=== PATIENT | male | born 1940 | race Caucasian/White ===

== ENCOUNTER → 2017-03-17 14:45 | Emergency (ER) | payer MEDICARE, OTHER ==
[2017-03-17 15:03] VITALS: BP 144/99
== END | disposition left against medical advice (07) ==
LOC: ED 14:45
DX: R00.2 Palpitations (principal)
CPT/HCPCS: 93005

== ENCOUNTER 2017-03-18 12:26 | Emergency (ER) | payer MEDICARE ==
[2017-03-18 14:30] VITALS: BP 110/72
--- NOTE | 2017-03-19 07:58 | ED ---
Gareth Maloney Angela, scribed for Robbie Petersen MD on 03/18/17 at 1337 . Throat Pain/Nasal Congestion - HPI Summary HPI Summary: This pt is a 76 y/o male presenting to [facility] c/o bleeding from left ear today. He denies any trauma. Pt denies sticking anything in his ear. Pt notes his ear is not bleeding any longer. He denies ear pain. Pt went to his PCP who advised him to come to the ED. NKDA. - History of Current Complaint Chief Complaint: EDGeneral Time Seen by Provider: 03/18/17 13:35 Hx Obtained From: Patient Onset/Duration: Lasting Hours, Resolved Associated Signs And Symptoms: Positive: Negative Cough: None - Allergies/Home Medications Allergies/Adverse Reactions: Allergies Allergy/AdvReac Type Severity Reaction Status Date / Time No Known Allergies Allergy Verified 03/17/17 14:58 PMH/Surg Hx/FS Hx/Imm Hx Endocrine/Hematology History: Denies: Hx Diabetes Cardiovascular History: Reports: Hx Hypertension, Hx Myocardial Infarction, Other Cardiovascular Problems/Disorders - cardiac stent - Immunization History Date of Tetanus Vaccine: UTD Date of Influenza Vaccine: 12/2016 Infectious Disease History: No Infectious Disease History: Denies: Traveled Outside the [place] in Last 30 Days - Family History Known Family History: Positive: Other - FHx of colon CA - Social History Alcohol Use: Rare Substance Use Type: Reports: None Smoking Status (MU): Former Smoker Review of Systems Negative: Fever, Chills Eyes: Negative ENT: Other - bleeding from left ear Negative: Ear Ache Cardiovascular: Negative Respiratory: Negative Gastrointestinal: Negative Genitourinary: Negative Skin: Negative Neurological: Negative All Other Systems Reviewed And Are Negative: Yes Physical Exam - Summary Physical Exam Summary: VITAL SIGNS: Reviewed. GENERAL: Patient is a well-developed and nourished male who is lying comfortable in the stretcher. Patient is not in any acute respiratory distress. HEAD AND FACE: No signs of trauma. No ecchymosis, hematomas or skull depressions. No sinus tenderness. EYES: PERRLA, EOMI x 2, No injected conjunctiva, no nystagmus. EARS: Hearing grossly intact. Right ear canal and tympanic membrane are within normal limits. Left tympanic membrane is perforated. There is no active bleeding. MOUTH: Oropharynx within normal limits. NECK: Supple, trachea is midline, no adenopathy, no JVD, no carotid bruit, no c- spine tenderness, neck with full ROM. CHEST: Symmetric, no tenderness at palpation LUNGS: Clear to auscultation bilaterally. No wheezing or crackles. CVS: Regular rate and rhythm, S1 and S2 present, no murmurs or gallops appreciated. ABDOMEN: Soft, non-tender. No signs of distention. No rebound no guarding, and no masses palpated. Bowel sounds are normal. EXTREMITIES: FROM in all major joints, no edema, no cyanosis or clubbing. NEURO: Alert and oriented x 3. No acute neurological deficits. Speech is normal and follows commands. SKIN: Dry and warm Triage Information Reviewed: Yes Vital Signs On Initial Exam: Initial Vitals Temp Pulse Resp BP Pulse Ox 97.7 F 74 18 131/77 100 03/18/17 12:35 03/18/17 12:35 03/18/17 12:35 03/18/17 12:35 03/18/17 12:35 Vital Signs Reviewed: Yes - Piotr Coma Scale Coma Scale Total: 15 Diagnostics - Vital Signs Vital Signs Temp Pulse Resp BP Pulse Ox 03/18/17 12:35 97.7 F 74 18 131/77 100 - Laboratory Lab Statement: Any lab studies that have been ordered have been reviewed, and results considered in the medical decision making process. EENT Course/Dx - Course Assessment/Plan: This pt is a 76 y/o male presenting to [facility] c/o bleeding from left ear today. He denies any trauma. Pt denies sticking anything in his ear. Pt notes his ear is not bleeding any longer. He denies ear pain. Pt went to his PCP who advised him to come to the ED. NKDA. The pts symptom of bleeding from the left ear has resolved. I believe the bleeding is from the perforated left tympanic membrane. The pt was placed on antibiotics and was given a referral to follow up with ENT. The pt will be discharge home. Pt is hemodynamically stable, alert and oriented x3. - Diagnoses Provider Diagnoses: Perforated tympanic membrane Discharge - Discharge Plan Condition: Stable Disposition: HOME Prescriptions: Amoxicillin PO (*) [Amoxicillin 875 MG (*)] 875 mg PO BID #20 tab Patient Education Materials: Ruptured Eardrum (ED) Referrals: Caleb Vazquez MD [Medical Doctor] - 2 Days Andrew Diaz MD [Primary Care Provider] - Additional Instructions: Please follow up with Dr. Vazquez, ENT doctor. RETURN TO THE ED FOR ANY WORSENING OR NEW SYMPTOMS. The documentation as recorded by the Gareth cade Angela accurately reflects the service I personally performed and the decisions made by me, Robbie Petersen MD.
== END 2017-03-18 14:29 | disposition home or self-care (01) ==
LOC: ED 12:26
DX: H72.92 Unspecified perforation of tympanic membrane, left ear (principal); Z87.891 Personal history of nicotine dependence; I10 Essential (primary) hypertension; I25.2 Old myocardial infarction
CPT/HCPCS: 99282

== ENCOUNTER 2019-03-23 13:25 | Emergency (ER) | payer MEDICARE ==
--- OUTSIDE RECORDS SUMMARY | 2019-03-23 14:12 | XMS REPORT | Continuity of Care Document ---
:1940 External Reference #:[id number] Author Name Niurka Shipman O.D. Address [address] [place] [address] Care Team Providers Name Role Phone Andrew Diaz M.D. 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 Onset: 03/23/2019 Combined form of senile cataract Niurka Shipman O.D. Onset: 12/23/2017 Vitreous degeneration Niurka Shipman O.D. Onset: 11/29/2014 Nuclear senile cataract Niurka Shipman O.D. Onset: 11/29/2014 Social History Type Date Description Comments Sex Unknown ETOH Use Denies alcohol use Recreational Drug Use Denies Drug Use Tobacco Use Start: Unknown End: Patient is a former smoker quit aged 25 Unknown Smoking Status Reviewed: 03/23/19 Patient is a former smoker quit aged 25 Allergies, Adverse Reactions, Alerts Description No Known Drug Allergies Medications Active Medications SIG Qnty Indications Ordering Provider Date Artificial Tears as needed Niurka Shipman, 12/22/2017 0.2-0.2-1% O.D. Solution Aspirin Daily Unknown 81mg Chewtabs Ramipril 1 Daily Unknown 2.5mg Capsules Carvedilol 2 Daily Unknown 3.125mg Tablets Atorvastatin Calcium 1 Daily Unknown 40mg Tablets Vitamin B Complex Unknown Tablets Vitamin D Daily Unknown (Cholecalciferol) 1000Unit Tablets Immunizations Description No Information Available Vital Signs Description No Information Available Results Description No Information Available Procedures Date Code Description Status 12/25/2018 12151 Est Patient Comprehensive Exam Completed Medical Devices Description No Information Available Encounters Description No Information Available Assessments Date Code Description Provider 03/23/2019 G45.9 Transient cerebral ischemic attack, Niurka Shipman O.D. unspecified 03/23/2019 H25.813 Combined forms of age-related cataract, Niurka Shipman O.D. bilateral 03/23/2019 H43.813 Vitreous degeneration, bilateral Niurka Shipman O.D. 12/25/2018 H25.813 Combined forms of age-related cataract, Niurka Shipman O.D. bilateral 12/25/2018 H43.813 Vitreous degeneration, bilateral Niurka Shipman O.D. Plan of Treatment Future Appointment(s):12/27/2019 11:00 am - Niurka Shipman O.D. at Andrew Lopez MD, 03/23/2019 - Niurka Shipman O.D.G45.9 Transient cerebral ischemic attack, unspecifiedComments:I recommend that you go to the ER immediately for a stroke evaluation.Follow up:3 Month Follow Up At your next visit, we are not planning to dilate your eyes. However, if you have any changes in your vision or new symptoms, there are certain situations that require us to dilateyour eyes. If Dr. Shipman requests any additional testing, that may require extra time. If you haveany questions before your next appointment, please call our office at .H28.818 Combined forms of age-related cataract, bilateralComments:You have been diagnosed with cataracts. If you are happy with your vision as it is now, then we willsee you at your next scheduled appointment. If you feel like your vision is getting worse before your scheduled appointment, please call [facility] at [phone].h43.813 Vitreous degeneration, bilateralComments:You have a Posterior Vitreous Detachment. Please read the pamphlet that was given to you. If you have any changes in your floaters or flashing lights, please contact this office. Functional Status Description No Information Available Mental Status Description No Information Available Referrals Description No Information Available
--- OUTSIDE RECORDS SUMMARY | 2019-03-23 14:12 | XMS REPORT | Continuity of Care Document ---
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 Onset: 11/07/2009 Coronary arteriosclerosis Feliz Auguste M.D. Onset: 11/07/2009 Paronychia Andrew Diaz M.D. Onset: 04/30/2011 Eruption Andrew Diaz M.D. Onset: 11/12/2011 Enthesopathy Andrew Diaz M.D. Onset: 02/09/2012 Acute serous otitis media Andrew Diaz M.D. Onset: 06/28/2012 Achilles bursitis Andrew Diaz M.D. Onset: 02/23/2013 Thrombosed external hemorrhoids Andrew Diaz M.D. Onset: 02/04/2014 Temporomandibular joint disorder Andrew Diaz M.D. Onset: 07/30/2014 Knee pain Andrew Diaz M.D. Onset: 11/03/2015 Insect bite (nonvenomous), right foot, Andrew Diaz M.D. Onset: 2015 initial encounter Social History Type Date Description Comments Sex Unknown Tobacco Use Start: Unknown Nonsmoker Smoking Status Reviewed: 02/26/19 Nonsmoker Allergies, Adverse Reactions, Alerts Description No Known Drug Allergies Medications Active Medications SIG Qnty Indications Ordering Provider Date Altace 1 PO qd 0caps Family Medicine 03/31/2006 2.5mg Capsules [facility] Coreg 1 po bid 0tabs Family [facility] 03/31/2006 3.125mg Tablets [facility] Aspirin 1 po qd Unknown 81mg Tablets Atorvastatin Calcium 1 by mouth every Unknown 40mg day Tablets Vitamin B Complex 1 by mouth every Unknown day Tablets Vitamin D 1 by mouth every Unknown 1000Unit day otc Tablets Triamcinolone apply to Unknown Acetonide affected skin 0.1% Cream twice a day Immunizations CPT Code Status Date Vaccine Lot # [id number] Given 01/13/2018 High-Dose, Influenza Virus Vacccine-fluzone 65 and older 23367 Given 01/14/2017 High-Dose, Influenza Virus Vacccine-fluzone 65 and older 14039 Given 05/14/2016 Zostivax 39565 Given 01/24/2015 High-Dose, Influenza Virus Vacccine-fluzone 65 and older 50652 Given 12/03/2014 Pneumococcal Conjugate Vacc-13 [id number] 42026 Given 01/19/2013 DO Not Use Split Influenza Virus Vaccine 97972 Given 02/11/2012 DO Not Use Split Influenza Virus Vaccine 04134 Given 04/30/2011 Tetanus And Diptheria Adult Preservative Free [id number] >7Yrs Q2038 Given 02/13/2011 Split Influenza Medicare: Fluzone [id number] 92930 Given 02/18/2010 DO Not Use Split Influenza Virus Vaccine [id number] 48559 Given 09/02/1997 Td Immunization, For Use In Individuals 7 Years Or Older Vital Signs Date Vital Result Comment 02/26/2019 9:28am BP Systolic 118 mmHg BP Diastolic 60 mmHg Heart Rate 56 /min Body Temperature 98.6 F Respiratory Rate 16 /min Height 69 inches 5'9" Weight 143.50 lb BMI (Body Mass Index) 21.2 kg/m2 03/17/2017 1:29pm BP Systolic 122 mmHg BP Diastolic 70 mmHg Heart Rate 62 /min Body Temperature 97.9 F Height 69 inches 5'9" Weight 150.00 lb BMI (Body Mass Index) 22.1 kg/m2 Results Description No Information Available Procedures Date Code Description Status 06/14/2014 54192537 Colonoscopy Completed Medical Devices Description No Information Available Encounters Description No Information Available Assessments Date Code Description Provider 02/26/2019 K64.8 Other hemorrhoids Melanie Gonsalez Plan of Treatment 02/26/2019 - Aydin Gonsalez-CK64.8 Other hemorrhoidsAllComments: Medication Management Patient Understands medications he's taking? Yes No Are there Barriersto Adherence? Yes No Has the patient been asked about herbal supplements and therapies, and OTC meds? Yes No Care Plan1. Patient has been queried about patient's goals/preferences and functional/lifestyle goals at relevant visits. If relevant, describe: na2. Treatment goals asexplained to the patient: abovesx resolution 3. Are there barriers to meeting treatment goals? Yes No If Yes, please describe:4. Self-Management goals as described to the patient: Yes Norefer to surg associates for poss banding Functional Status Description No Information Available Mental Status Description No Information Available Referrals Refer to Reason for Referral Status Appt Date Alicia Benton Created [address] [place] [address] [phone]
--- OUTSIDE RECORDS SUMMARY | 2019-03-23 14:12 | XMS REPORT | Continuity of Care Document ---
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 Onset: 04/10/2015 Social History Type Date Description Comments Sex Unknown Tobacco Use Start: Unknown End: Former Cigarette Smoker Unknown Smoking Status Reviewed: 02/28/19 Former Cigarette Smoker ETOH Use Denies alcohol use Tobacco Use Start: Unknown End: Patient is a former Quit at age of 25. Unknown smoker Recreational Drug Use Denies Drug Use Exercise Type/Frequency Exercises regularly walking 2 miles daily Allergies, Adverse Reactions, Alerts Description No Known Drug Allergies Medications Active Medications SIG Qnty Indications Ordering Provider Date Atorvastatin Calcium 1 by mouth 90tabs Taran Garvey, 04/30/2016 40mg every day M.D. Tablets Coreg 1 by mouth 180tabs Taran Garvey, 3.125mg Tablets twice a day M.D. Ramipril 1 by mouth 90caps Taran Garvey, 2.5mg Capsules every day M.D. B Complex 1 po qd Unknown Capsules Aspirin 1 po qd Unknown 81mg Tablets Vitamin D3 1 by mouth Unknown 1000Unit every day Capsules Triamcinolone Acetonide apply to dry Unknown skin once or 0.1% Lotion twice daily Medications Administered in Office Medication SIG Qnty Indications Ordering Provider Date Technetium TC 99M Tetrofosmin, Taran Garvey M.D. 05/26/2018 Per Unit Dose Up To 40 Millicuries Injection Immunizations Description No Information Available Vital Signs Date Vital Result Comment 02/28/2019 10:13am Height 62.5 inches 5'2.50" Weight 138.00 lb Heart Rate 78 /min BP Systolic Sitting 126 mmHg BP Diastolic Sitting 78 mmHg Respiratory Rate 16 /min Body Temperature 98.4 F BMI (Body Mass Index) 24.8 kg/m2 05/31/2018 3:51pm Height 62.5 inches 5'2.50" Weight 144.00 lb with shoes Heart Rate 70 /min BP Systolic Sitting 114 mmHg Lue reg cuff BP Diastolic Sitting 72 mmHg Lue reg cuff BP Systolic Standing 118 mmHg Lue reg cuff BP Diastolic Standing 70 mmHg Lue reg cuff Respiratory Rate 16 /min BMI (Body Mass Index) 25.9 kg/m2 Ejection Fraction 55% date Results Description No Information Available Procedures Description No Information Available Medical Devices Description No Information Available Encounters Description No Information Available Assessments Description No Information Available Plan of Treatment 05/31/2018 - Taran Garvey M.D.I25.10 Atherosclerotic heart disease of [place] coronary artery withFollow up:1 year Functional Status Description No Information Available Mental Status Description No Information Available Referrals Description No Information Available
--- NOTE | 2019-03-23 16:59 | ED ---
Throat Pain/Nasal Congestion - HPI Summary HPI Summary: This pt is a 78 y/o male presenting [place] [facility] c/o one episode of visual disturbance 2 days ago. Pt reports he was watching TV 2 days ago when suddenly his vision went "crazy." He describes this episode as "similar to double vision , but things didn't make sense." Additionally describes it "like Su's paintings, [place]." Pt states that if he closed one eye at a time he could see ok, but if he had both eyes open he had this visual disturbance. He also notes pt felt faint and had to put his head down between his knees. Denies any LOC or syncope. Since then pt has not had any other episodes of visual disturbance. Denies any numbness, tingling, weakness, facial droop. Pt saw his ash collector today and had his eyes dilated. From report pt with present episode of diplopia and was diagnosed with TIA. PMHx: cataracts, HTN, high cholesterol, NM. Pt currently takes aspirin. - History of Current Complaint Chief Complaint: EDNeurologicalDeficit Time Seen by Provider: 03/23/19 16:53 Hx Obtained From: Patient Onset/Duration: Sudden Onset, Resolved Severity: Moderate Associated Signs And Symptoms: Positive: Negative Cough: None - Allergies/Home Medications Allergies/Adverse Reactions: Allergies Allergy/AdvReac Type Severity Reaction Status Date / Time No Known Allergies Allergy Verified 03/17/17 14:58 Home Medications: Home Medications Atorvastatin* [Lipitor*] 40 mg PO 1700 03/23/19 [History Confirmed 03/23/19] Ramipril CAP* [Altace CAP*] 2.5 mg PO DAILY 03/23/19 [History Confirmed 03/23/19 ] carvediloL [Carvedilol] 1 tab PO BID 03/23/19 [History Confirmed 03/23/19] PMH/Surg Hx/FS Hx/Imm Hx Endocrine/Hematology History: Denies: Hx Diabetes Cardiovascular History: Reports: Hx Hypercholesterolemia, Hx Hypertension, Hx Myocardial Infarction, Other Cardiovascular Problems/Disorders - cardiac stent Sensory History: Reports: Hx Cataracts - Immunization History Date of Tetanus Vaccine: UTD Date of Influenza Vaccine: 12/2016 Infectious Disease History: No Infectious Disease History: Denies: Traveled Outside the [place] in Last 30 Days - Family History Known Family History: Positive: Other - FHx of colon CA - Social History Alcohol Use: Rare Substance Use Type: Reports: Marijuana Smoking Status (MU): Former Smoker Review of Systems Negative: Fever Eyes: Other - POSITIVE: visual disturbance Positive: Diplopia Cardiovascular: Negative Respiratory: Negative Neurological: Other - POSITIVE: faint. NEGATIVE: facial droop Negative: Weakness, Paresthesia, Numbness All Other Systems Reviewed And Are Negative: Yes Physical Exam - Summary Physical Exam Summary: GENERAL: Patient is a well-developed and nourished male who is lying comfortable in the stretcher. Patient is not in any acute respiratory distress. HEAD AND FACE: No signs of trauma. No ecchymosis, hematomas or skull depressions. No sinus tenderness. EYES: PERRLA, EOMI x 2, No injected conjunctiva, no nystagmus. EARS: Hearing grossly intact. Ear canals and tympanic membranes are within normal limits. MOUTH: Oropharynx within normal limits. NECK: Supple, trachea is midline, no adenopathy, no JVD, no carotid bruit, no c- spine tenderness, neck with full ROM. CHEST: Symmetric, no tenderness at palpation LUNGS: Clear to auscultation bilaterally. No wheezing or crackles. CVS: Regular rate and rhythm, S1 and S2 present, no murmurs or gallops appreciated. ABDOMEN: Soft, non-tender. No signs of distention. No rebound no guarding, and no masses palpated. Bowel sounds are normal. EXTREMITIES: FROM in all major joints, no edema, no cyanosis or clubbing. NEURO: Alert and oriented x 3. No acute neurological deficits. Speech is normal and follows commands. SKIN: Dry and warm GCS: 15 Triage Information Reviewed: Yes Vital Signs On Initial Exam: Initial Vitals Temp Pulse Resp BP Pulse Ox 97.7 F 70 18 133/72 99 03/23/19 13:37 03/23/19 13:37 03/23/19 13:37 03/23/19 13:37 03/23/19 13:37 Vital Signs Reviewed: Yes Procedures - Sedation Patient Received Moderate/Deep Sedation with Procedure: No Diagnostics - Vital Signs Vital Signs Temp Pulse Resp BP Pulse Ox 03/23/19 13:37 97.7 F 70 18 133/72 99 - Laboratory Result Diagrams: 03/23/19 17:45 03/23/19 17:45 Lab Statement: Any lab studies that have been ordered have been reviewed, and results considered in the medical decision making process. - CT brain CT CT Interpretation Completed By: Radiologist Summary of CT Findings: IMPRESSION: 1. There is age-related diffuse cerebral and cerebellar volume loss and chronic microvascular ischemic disease. 2. No acute intracranial pathology. Dr. Petersen has reviewed this report. - EKG 1738 Cardiac Rate: NL - at 65 bpm EKG Rhythm: Sinus Rhythm EKG Comparison: No Significant Change - similar to prior EKG on 03/17/17. Summary of EKG Findings: EKG at 1738 shows normal sinus rhythm at a rate of [address] elevations. RBBB. Similar to prior EKG on 03/17/17. EENT Course/Dx - Course Assessment/Plan: This pt is a 78 y/o male presenting to [facility] c/o one episode of visual disturbance 2 days ago. Pt reports he was watching TV 2 days ago when suddenly his vision went "crazy." He describes this episode as "similar to double vision, but things didn't make sense." Additionally describes it "like [employer]s paintings, [place]." Pt states that if he closed one eye at a time he could see ok, but if he had both eyes open he had this visual disturbance. He also notes pt felt faint and had to put his head down between his knees. Denies any LOC or syncope. Since then pt has not had any other episodes of visual disturbance. Denies any numbness, tingling, weakness, facial droop. Pt saw his ash collector today and had his eyes dilated. From report pt with present episode of diplopia and was diagnosed with TIA. PMHx: cataracts, HTN, high cholesterol, NM. Pt currently takes aspirin. Blood work without any significant abnormality except for slight anemia, total protein 6.3. Head CT IMPRESSION: 1. There is age-related diffuse cerebral and cerebellar volume loss and chronic. microvascular ischemic disease. 2. No acute intracranial pathology. I discussed the case with and Dr. Atkinson from neurology and he recommends for the patient to be given aspirin 325 mg and Plavix 75 mg. He also recommends for the patient to be admitted to the hospitalist services for a TIA workup. He recommends an MRI of the brain, Doppler, and echocardiogram. I discuss my physical exam and test results with Dr. Boland from the hospitalist services and he agrees to admit the patient to his services. The patient is hemodynamically stable, alert and oriented x 3 - Diagnoses Provider Diagnoses: TIA (transient ischemic attack), Left against medical advice - Provider Notifications Discussed Care Of Patient With: Daniel Atkinson Time Discussed With Above Provider: 18:16 Instructed by Provider To: Other - Discussed the case with Dr. Atkinson, neurologist, who recommends admission for TIA work up, and recommends to give aspirin and Plavix. [18:34] Discussed with Dr. Boland, hospitalist, who accepted the pt for admission. Discharge ED - Sign-Out/Discharge Documenting (check all that apply): Patient Departure - Admit to [facility] - Discharge Plan Condition: Stable Disposition: AGAINST MEDICAL ADVICE Patient Education Materials: Transient Ischemic Attack (ED), Against Medical Advice (ED) Referrals: Andrew Diaz MD [Primary Care Provider] - 2 Days Additional Instructions: PLEASE FOLLOW UP WITH YOUR PRIMARY CARE PROVIDER FOR FURTHER CARE. RETURN TO THE EMERGENCY DEPARTMENT FOR ANY NEW OR WORSENING SYMPTOMS. - Billing Disposition and Condition Condition: STABLE Disposition: Admitted to [facility] - Attestation Statements Document Initiated by Chelseyibe: Yes Documenting Scribe: Laverne Servin Provider For Whom Chelseyibbob is Documenting (Include Credential): Robbie Petersen MD Scribe Attestation: Laverne Maloney scribed for Robbie Petersen MD on 03/25/19 at 1849. Scribe Documentation Reviewed: Yes Provider Attestation: The documentation as recorded by the Laverne cade accurately reflects the service I personally performed and the decisions made by , Robbie Petersen MD Status of Scribe Document: Viewed
[2019-03-23 18:03] LABS: ABS Eosinophils 0.2 10^3/ul (0-0.6); ABS Lymphocytes 1.7 10^3/ul (1.0-4.8); ABS Monocytes 0.6 10^3/ul (0-0.8); ABS Neutrophils 3.1 10^3/ul (1.5-7.7); Eosinophil % 2.8 %; Hematocrit 39 % (42-52); Hemoglobin 13.2 g/dL (14.0-18.0); Lymphocyte % 31.1 %; Mean Corpuscular HGB Conc 34 g/dL (31-36); Mean Corpuscular Hemoglobin 31 pg (27-31); Mean Corpuscular Volume 92 fL (80-94); Mean Platelet Volume 8.1 fL (7.4-10.4); Platelet Count 179 10^3/uL (150-450); Red Blood Count 4.23 10^6 /uL (4.18-5.48); Red Cell Distribution Width 15 % (10-15); White Blood Count 5.6 10^3/uL (3.5-10.8)
[2019-03-23 18:14] LABS: Albumin 3.7 g/dL (3.2-5.2); Albumin/Globulin Ratio 1.4 (1-3); BUN/Creatinine Ratio 21.9 (8-20); EGFR African American 126.4 (>60); EGFR Non-African American 104.5 (>60); Globulin 2.6 g/dL (2-4); HDL Cholesterol 68.5 mg/dL; Potassium 3.8 mmol/L (3.5-5.0); Total Bilirubin 0.7 mg/dL (0.2-1.0); Total Protein 6.3 g/dL (6.4-8.9)
[2019-03-23 18:14] LABS: Activated Partial Thrombo Time 37.2 seconds (26.0-38.0); INR 1.02 (0.82-1.09)
[2019-03-23] MEDS ORDERED: Clopidogrel TAB* 75 MG PO ONE (18:19)
[2019-03-23] MEDS ORDERED: Aspirin 81 mg CHEW TAB* 81 MG TAB.CHEW PO ONE (18:19)
[2019-03-23 19:10] LABS: Urine Appearance Cloudy; Urine Bilirubin Negative (Negative); Urine Blood Negative (Negative); Urine Color Yellow; Urine Glucose Negative (Negative); Urine Ketones Trace (Negative); Urine Nitrite Negative (Negative); Urine Protein Negative (Negative); Urine Specific Gravity 1.008 (1.010-1.030); Urine Urobilinogen Negative (Negative)
--- NOTE | 2019-03-23 19:32 | ED ---
Progress - Progress Note Progress Note: Pt was seen by the Hospitalist, LIZBETH Ames, and refused inpatient care. He stated that he will follow up in out patient care. He is leaving AMA and will be given the correct forms and informed of the possible complications from his choice, including but not limited to: Coma, , and paralysis. Course/Dx - Course Course Of Treatment: Pt was seen by the Hospitalist, LIZBETH Ames, and refused inpatient care. He stated that he will follow up in out patient care. He is leaving AMA and will be given the correct forms and informed of the possible complications from his choice, including but not limited to: Coma, , and paralysis. - Diagnoses Provider Diagnoses: TIA (transient ischemic attack), Left against medical advice - Provider Notifications Time Discussed With Above Provider: 18:16 Instructed by Provider To: Other - Discussed the case with Dr. Atkinson, neurologist, who recommends admission for TIA work up, and recommends to give aspirin and Plavix. [18:34] Discussed with Dr. Boland, hospitalist, who accepted the pt for admission. Discharge ED - Sign-Out/Discharge Documenting (check all that apply): Patient Departure - AMA - Discharge Plan Condition: Stable Disposition: AGAINST MEDICAL ADVICE Patient Education Materials: Transient Ischemic Attack (ED), Against Medical Advice (ED) Referrals: Andrew Diaz MD [Primary Care Provider] - 2 Days Additional Instructions: PLEASE FOLLOW UP WITH YOUR PRIMARY CARE PROVIDER FOR FURTHER CARE. RETURN TO THE EMERGENCY DEPARTMENT FOR ANY NEW OR WORSENING SYMPTOMS. - Billing Disposition and Condition Condition: STABLE Disposition: Against Medical Advice - Attestation Statements Document Initiated by Romelia: Yes Documenting Scribe: Everardo Ramirez Provider For Whom Romelia is Documenting (Include Credential): Anne Melvin MD Scribe Attestation: Everardo Maloney, scribed for Anne Melvin MD on 03/24/19 at 2014. Scribe Documentation Reviewed: Yes Provider Attestation: The documentation as recorded by the Everardo cade accurately reflects the service I personally performed and the decisions made by me, Anne Melvin MD Status of Scribe Document: Viewed
[2019-03-23 20:12] VITALS: BP 128/76
--- NOTE | 2019-03-23 22:51 | CONS ---
CC: Dr. Diaz MEDICINE CONSULTATION REPORT: DATE OF CONSULT: 03/23/19 PRIMARY CARE PHYSICIAN: Dr. Diaz. PROVIDER: Franco Carpenter NP ATTENDING PHYSICIAN: Isiah Boland MD (dictated by Franco Carpenter NP). REQUESTING PHYSICIAN: Robbie Petersen MD, Emergency Medicine. REASON FOR CONSULTATION: Evaluation for admission. HISTORY OF PRESENT ILLNESS: Mr. Myrick is a 78-year-old male who presented to the ER today at recommendation of the fashion intern. He reports on Tuesday he had an episode where he had visual disturbance, describing his vision was going "crazy." He reported that was like double vision, but thinks that it makes sense. It was more notable with both eyes, less notable with one eye closed. He also had some dizziness and lightheadedness and felt faint and had to put his head between his knees. Symptoms resolved on their own and he has since been fine. He saw Ophthalmology today and had his eyes dilated. The fashion intern expressed concern for TIA and referred him to the ER for further evaluation. He did have a CT of the brain, which showed no acute intracranial pathology. The case was discussed with Neurology, and he has recommended to be admitted to the hospital for further evaluation. Mr. Myrick declines to be admitted today as he states his insurance would not cover all hospitalizations and testing and will refer to get testing done as an outpatient. PAST MEDICAL HISTORY: Significant for hypertension, hypercholesterolemia, coronary artery disease with CT and history of stent placement and cataracts. HOME MEDICATIONS: Include: 1. Aspirin 81 mg daily. 2. Atorvastatin 40 mg daily 3. Ramipril 2.5 mg daily. 4. Carvedilol 3.125 mg twice a day. ALLERGIES: No known allergies. FAMILY HISTORY: Significant for colon cancer. SOCIAL HISTORY: He is a former smoker. He reports rare alcohol use. He does endorse marijuana use. He lists his son, Ryder Welch, as his surrogate decision maker in the event of emergency. REVIEW OF SYSTEMS: As per HPI, a 12-point review of systems was completed. PHYSICAL EXAM: Vital Signs: Temperature 98.8, heart rate 68, respiratory rate 16, blood pressure 110/60, O2 saturation 98% on room air. General: This is an older male seen lying in ED stretcher in no acute distress. HEENT: Head is atraumatic and normocephalic. Pupils are dilated, but symmetrical. Extraocular movements are intact. Oral mucosa is moist. Neck is supple. No lymphadenopathy appreciated. No JVD noted. No carotid bruit auscultated. Neck : Full range of motion. Cardiac: Regular rate and rhythm. Normal S1 and S2 heart sounds. Lungs: Clear to auscultation bilaterally. Abdomen: Soft, nontender, nondistended with normoactive bowel sounds. Extremities: Without edema, without clubbing or cyanosis. Full range of motion noted. Skin: Warm and dry. Neuro: He is alert and oriented x3. No focal deficits. Speech is clear. Cranial nerves II through XII grossly intact. DIAGNOSTIC STUDIES/LAB DATA: CBC: WBC 5.6, hemoglobin 13.2, hematocrit 39, platelet count 179. CMP: Sodium 139, potassium 3.8, chloride 107, carbon dioxide 27, BUN 16, creatinine 0.73, glucose 91, lactic acid 0.6, calcium 9.0. Total bilirubin 0.7, AST 29, ALT 28, alk phos 70, troponin 0. Triglycerides 50 , cholesterol 114, LDL 36, HDL 68. CT as per above. EKG shows normal sinus rhythm, no ischemic changes, right bundle- branch block which is similar to previous EKG seen in February 2017. Old medical records were reviewed. ASSESSMENT AND PLAN: This is a 78-year-old male seen today. We had offered to admit him in observation status for further testing and workup for his transient ischemic attack, which would include carotid Doppler studies, MRI, echo and monitoring on telemetry with neurological checks. I did discuss this at length with the patient for approximately 20 minutes, and we discussed the risks and benefits of staying here in the hospital to have full workup done versus leaving home and having this done as an outpatient. In any event, he was advised to continue on aspirin 325 and Plavix 75 as per recommendation of Dr. Atkinson were to decrease his risk for further neurological events. I did also convey this to the ER staff, as he will likely have to leave AMA from the ER as he is declining admission. We recommended to the ER to prescribe his aspirin and Plavix until he is able to see his PCP and follow up as this would help improve best outcome for the patient. In any event, I did let him know that if he change his mind we will be happy to admit him and do further evaluation here in the hospital, which would include the previous as mentioned tests. He was thankful for this, but opted to go home and follow up with Dr. Diaz as an outpatient. At this point in time, he will be under the care of emergency service team and should this change, we will be happy to resume care for him on the inpatient unit. TIME SPENT: Approximately 40 minutes was spent on this consult with greater than half the time spent [id number] with the patient, obtaining history and physical, performing the physical examination, and reviewing the plan of care. Plan of care was also discussed with my attending, Dr. Boland, who is in agreement. FRANCO CARPENTER, IRISH MOSS GATHERER [id number]/CPS #: [id number] R
== END 2019-03-23 20:10 | disposition left against medical advice (07) ==
LOC: ED 13:25
DX: G45.9 Transient cerebral ischemic attack, unspecified (principal); Z53.21 Procedure and treatment not carried out due to patient leaving prior to being seen by health care provider; E78.00 Pure hypercholesterolemia, unspecified; I10 Essential (primary) hypertension; I25.2 Old myocardial infarction; I25.10 Atherosclerotic heart disease of native coronary artery without angina pectoris; Z87.891 Personal history of nicotine dependence; Z95.5 Presence of coronary angioplasty implant and graft; Z79.82 Long term (current) use of aspirin; Z79.899 Other long term (current) drug therapy
CPT/HCPCS: 36415; 70450; 80053; 80061; 81003; 83605; 84484; 85025; 85610; 85730; 93005; 99284; A9270-GY